=== PATIENT | female | born 1945 | race Caucasian/White ===

== ENCOUNTER → 2019-04-15 10:23 | Outpatient (BNVA) | payer MEDICARE, MEDICAID, SELFPAY | PROVIDERS: Family Provider Physician Assistant Medical; PCP Physician Assistant Medical; Referring Provider Physician Assistant Medical; Visit Provider Specialist | DX: M25.561 Pain in right knee (principal); G89.29 Other chronic pain | CPT/HCPCS: 73560; 73565; J1100; J2795; J3301 ==

== ENCOUNTER → 2020-12-28 08:50 | Outpatient (BNVA) | payer MEDICARE, MEDICAID, SELFPAY | PROVIDERS: Family Provider Nurse Practitioner Family; PCP Physician Assistant Medical; Visit Provider Specialist | DX: M25.562 Pain in left knee (principal); M25.561 Pain in right knee | CPT/HCPCS: 73560; 73565 ==

== ENCOUNTER 2021-05-17 13:11 | Outpatient (CLI) | payer MEDICARE, MEDICAID, SELFPAY ==
--- NOTE | 2021-05-17 13:20 | MM_ITS ---
WS: [id number] LEFT 3D TOMOSYNTHESIS DIGITAL MAMMOGRAPHY WITH CAD CLINICAL INFORMATION: BREAST PAIN HISTORY: Bilateral breast pain COMPARISON: TECHNIQUE: 6 views of the left breast were obtained. FINDINGS: Scattered fibroglandular densities of the left breast. No definite mammographic abnormalities deep to the palpable markers bilaterally. A few incidental punctate calcifications. Ultrasound is pending. V ascular calcification. Incidental intramammary lymph nodes upper outer LEFT breast. ULTRASOUND BREAST BILATERAL TECHNIQUE: Ultrasound bilateral breast focused area of concern. CLINICAL INFORMATION: BREAST PAIN COMPARISON: None. FINDINGS: Ultrasound bilateral breast in the area of concern. Ultrasound RIGHT breast 7:00 position 5 cm from the nipple. Ultrasound LEFT breast 11:00 position 7 cm from the nipple. Dense underlying par enchymal tissue. No cystic or solid lesions. No suspicious findings. No lesions to target for biopsy. Recommend return to annual screening mammography. MM/[place] [id number] IMPRESSION: BI-RADS: 2-Benign FOLLOW UP: 1 Year Follow-up Recommend return to annual screening mammography.
--- NOTE | 2021-05-17 14:31 | US_ITS ---
WS: [id number] LEFT 3D TOMOSYNTHESIS DIGITAL MAMMOGRAPHY WITH CAD CLINICAL INFORMATION: BREAST PAIN HISTORY: Bilateral breast pain COMPARISON: TECHNIQUE: 6 views of the left breast were obtained. FINDINGS: Scattered fibroglandular densities of the left breast. No definite mammographic abnormalities deep to the palpable markers bilaterally. A few incidental punctate calcifications. Ultrasound is pending. V ascular calcification. Incidental intramammary lymph nodes upper outer LEFT breast. ULTRASOUND BREAST BILATERAL TECHNIQUE: Ultrasound bilateral breast focused area of concern. CLINICAL INFORMATION: BREAST PAIN COMPARISON: None. FINDINGS: Ultrasound bilateral breast in the area of concern. Ultrasound RIGHT breast 7:00 position 5 cm from the nipple. Ultrasound LEFT breast 11:00 position 7 cm from the nipple. Dense underlying par enchymal tissue. No cystic or solid lesions. No suspicious findings. No lesions to target for biopsy. Recommend return to annual screening mammography. US/US breast BI limited* [id number] IMPRESSION: BI-RADS: 2-Benign FOLLOW UP: 1 Year Follow-up Recommend return to annual screening mammography.
== END 2021-05-17 13:12 | disposition home or self-care (01) ==
PROVIDERS: PCP Nurse Practitioner Family; Visit Provider Registered Nurse
DX: N64.4 Mastodynia (principal)
CPT/HCPCS: 76642; 77062

== ENCOUNTER → 2021-07-12 10:31 | Outpatient (BNVA) | payer MEDICARE, MEDICAID, SELFPAY | PROVIDERS: PCP Nurse Practitioner Family; Visit Provider Specialist | DX: M17.0 Bilateral primary osteoarthritis of knee (principal); Z71.89 Other specified counseling | CPT/HCPCS: 20610; J1100; J2795; J3301 ==

== ENCOUNTER → 2021-09-26 12:15 | Outpatient (BNVA) | payer MEDICARE, MEDICAID, SELFPAY | PROVIDERS: PCP Registered Nurse; Visit Provider Internal Medicine Cardiovascular Disease | DX: R06.02 Shortness of breath (principal); R07.9 Chest pain, unspecified; E78.5 Hyperlipidemia, unspecified; I10 Essential (primary) hypertension; Z87.891 Personal history of nicotine dependence | CPT/HCPCS: 99203; 99204 ==

== ENCOUNTER → 2022-06-10 08:59 | Outpatient (BNVA) | payer MEDICARE, MEDICAID, SELFPAY | PROVIDERS: PCP Registered Nurse; Referring Provider Registered Nurse; Visit Provider Specialist | DX: M17.11 Unilateral primary osteoarthritis, right knee (principal); M22.41 Chondromalacia patellae, right knee; S83.241A Other tear of medial meniscus, current injury, right knee, initial encounter; X58.XXXA Exposure to other specified factors, initial encounter | CPT/HCPCS: 73560; 73565; 99204 ==

== ENCOUNTER 2022-06-28 08:56 | Day surgery (SDC) | payer MEDICARE, MEDICAID, SELFPAY ==
[2022-06-27 08:51] VITALS: BMI 38.4
[2022-06-28] VITALS (8 sets, daily range): BP systolic 129–232; BP diastolic 63–89; PULSE 61–72; RESP 16–18; TEMP 36.8; O2SAT 94–99
[2022-06-28] MEDS: acetaminophen 1,000 MG/100 ML PIGGYBACK 400 MG IV (09:40)
[2022-06-28] MEDS: gabapentin 300 mg Capsule PO (09:40)
[2022-06-28] MEDS: sodium chloride 0.9% 1,000 ML 30 ML IV (09:40)
[2022-06-28] MEDS: CELEcoxib 200 mg Capsule 400 MG PO (09:41)
--- NOTE | 2022-06-28 10:19 | ANES.PREANE2 ---
Pre-Anesthetic Assessment Height/Weight: Height 1.57 m Weight 95.254 kg Temp Pulse Resp BP Pulse Ox O2 Del Method 98.3 F 61 16 232/84 96 Room Air 06/28/22 09:06 06/28/22 09:06 06/28/22 09:06 06/28/22 09:06 06/28/22 09:06 06/28/22 09:36 Operation Date: 06/28/22 11:00 Proposed Procedures p RIGHT KNEE ARTHROSCOPY WITH MEDIAL MENISECTOMY AND DEBRIDMENT 05780, S83.241A M22.40 M17.11(Right) - Bev South MD s Meniscectomy(Right) - Bev South MD s Debridement Lower Extremity(Right) - Bev South MD Familial anesthetic complications: none Was Beta Skyla taken within 24 hours: N/A Was Clonidine taken within 24 hours: N/A Last intake: Intake Last Liquid Date 06/27/22 Last Liquid Time 18:00 Last Solid Date 06/27/22 Last Solid Time 18:00 Social No alcohol and No tobacco Exam alert, oriented x 3, clear to auscultation bilaterally and regular rate & rhythm Airway Submandibular: within normal limits Cervical ROM: within normal limits Mallampati: Class II Dentition: false (upper) CV/HEM Hypertension GI Gastroesophageal Reflux Disease Metabolic Hyperlipidemia and Morbid Obesity [facility] [place] Osteoarthritis/DJD Anesthetic Plan ASA status: 3 Anesthesia: General Medications/Allergies Home Medications Medication Instructions Recorded Confirmed Last Taken Type hydrochlorothiazide 25 mg tablet 25 mg PO DAILY 09/26/21 06/27/22 06/26/22 History losartan 100 mg tablet 100 mg PO DAILY 09/26/21 06/27/22 06/26/22 History pantoprazole 40 mg tablet,delayed 40 mg PO DAILY 09/26/21 06/27/22 06/26/22 History release pravastatin 40 mg tablet 40 mg PO DAILY 09/26/21 06/27/22 06/26/22 History docusate sodium 100 mg tablet 100 mg PO DAILY 06/27/22 06/27/22 06/26/22 History (Stool Softener) Allergies Allergy/AdvReac Type Severity Reaction Status Date / Time No Known Allergies Allergy Verified 06/28/22 09:23 Current Medications Generic Name Dose Route Start Last Admin Trade Name Freq PRN Reason Stop Dose Admin Sodium Chloride 1,000 mls @ 30 mls/hr 06/28/22 09:15 06/28/22 09:40 Sodium Chloride 0.9% IV 06/29/22 09:14 30 mls/hr .Q24H POONAM Administration PFSH Anesthesia Medical History Chondromalacia patellae of right knee GERD (gastroesophageal reflux disease) History of nonmelanoma skin cancer Hyperlipidemia Hypertension Medial meniscus tear Surgical History S/P bilateral oophorectomy Family History Brother Myocardial infarction Hypertension Sister Myocardial infarction Cancer Diabetes Hypertension Mother Cancer Father Cancer Social History Smoking and tobacco status: former smoker Alcohol intake: never Substance/Drug Use: never Data Anesthesia Cardiac Studies: No Data to Display
[2022-06-28] MEDS: diphenhydrAMINE 50 mg/mL SDV 1mL 12.5 MG IVP (10:45)
[2022-06-28] MEDS: scopolamine 1.5 Patch 1 PATCH TRANSDERMA (10:46)
--- NOTE | 2022-06-28 12:02 | P.HPUD_ITS ---
Surgery/Procedure H&P Update DATE OF PROCEDURE: June 28, 2022 DATE H&P PERFORMED: 06/10/22 H&P UPDATE INFORMATION: I have reviewed H&P completed within last 30 days, I have examined patient prior to procedure, No changes to prior documentation and H&P is in [facility] EMR on date indicated PLANNED PROCEDURE: Operation Date: 06/28/22 11:00 Proposed Procedures p RIGHT KNEE ARTHROSCOPY WITH MEDIAL MENISECTOMY AND DEBRIDMENT 47874, S83.241A M22.40 M17.11(Right) - Bev South MD s Meniscectomy(Right) - Bev South MD s Debridement Lower Extremity(Right) - Bev South MD Related Problem List Diagnoses (1) Medial meniscus tear: Qualifiers: Tear current or old: current Encounter type: initial encounter Meniscus tear of knee type: unspecified type Laterality: right Qualified Code(s): S83.241A - Other tear of medial meniscus, current injury, right knee, initial encounter (2) Chondromalacia patellae of right knee: (3) Primary osteoarthritis of right knee:
[2022-06-28] MEDS: ceFAZolin 2,000 MG in sodium chloride 0.9% (plus) 50 ML 100 MG IV (12:21)
[2022-06-28] MEDS: morphine 4 mg/mL SDV 1 mL 8 MG XX (12:57)
--- NOTE | 2022-06-28 14:32 | ANE.PACU2 ---
Inpatient post-anesthesia follow up: Airway intact: Yes Vital signs: Temperature 98.3 F Pulse Rate 64 Respiratory Rate 18 Blood Pressure 157/89 Pulse Oximetry 96 Oxygen Delivery Me thod Room Air Oxygen Flow Rate 6 Fraction of Inspir ed Oxygen Hydration adequate: Yes Nausea and vomiting: No Pain level: 3 Mental status: Baseline
--- NOTE | 2022-06-28 14:45 | P.OP_ITS ---
Operative Report Date of procedure: June 28, 2022 Pre-op diagnosis: Right knee medial meniscal tear with underlying osteoarthritis right knee Post-op diagnosis: Right knee medial and lateral meniscal tears with underlying osteoarthritis right knee Procedure done: Right arthroscopic knee surgery with partial medial and lateral meniscectomies and chondroplasty patella and medial femoral condyle Specimens removed/disposition: None Surgeon: Bev South [employer] Counterperson: None Anesthesia: General (Per LMA, ASA 3) Estimated blood loss (mL): 3 Tourniquet time (min): 49 (At 300 mmHg) IV fluids (mL): 700 Urine output (mL): 0 (No Cespedes) Complications: None Findings: Posterior medial meniscal tear involving the posterior half with a large displaced fragment into the notch. Significant degenerative osteoarthritis within the knee as well. Condition: stable Disposition: PACU (Then to same-day surgery for discharge to home) Brief History: This is a 76 year old year old female patient who presents today for right knee arthroscopy following an acute injury to her right knee. Subsequent MRI demonstrated a medial meniscal tear along with a degenerative osteoarthritic changes. Patient states the pain is to the lateral knee and anterior knee.? Patient states that the pain is burning and radiates to the lower leg. Patient states the knee pops at times. Patient states that the knee has instability as well. After evaluation and discussion while in the office, the patient noted that she wished to proceed with knee arthroscopy understanding that it may aggravate her pre-existing osteoarthritic change. She had a definite change in symptoms following her acute injury, and therefore, we elected to proceed with arthroscopic knee surgery. Risk and complications were discussed with her. Consents were signed preoperatively in the office. Questions were answered. Procedure: Patient was brought to the operating theater and after undergoing adequate general anesthesia per LMA, ASA 3, the patient's right lower extremity was prepped and draped in usual fashion utilizing DuraPrep. A tourniquet was placed high on the leg prior to prepping and draping. The tourniquet was elevated prior to commencement of the surgical procedure to 300 mmHg. Total tourniquet time was 49 minutes. Elevation followed prepping and exsanguination. Prior to commencement of the surgical procedure, a surgical pause was performed. At the time of the surgical pause, we identified the site and side of surgery. We also confirm the patient's identity and appropriate and timely administration of preoperative antibiotics. Preoperative surgical markings were also visualized at this time. Standard arthroscopic portals were utilized including superolateral, inferomedial, and inferolateral portals. The examination commenced in the suprapatellar pouch area where the patient was noted to have chondromalacia of the significant degree on the undersurface of the patella. The arthroscope was then passed in the medial compartment where there was noted to be a tear involving the posterior horn and extending to approximately the midportion of the medial meniscus. This was debrided with a combination of the intra- articular shaver and intra-articular heat wand. Further evaluation demonstrated there was a rolled up displaced fragment in the posterior notch. This was also addressed with a combination of basket forceps, the intra-articular shaver, and the heat wand. The meniscus was then palpated and found to be not displaceable into the joint. The arthroscope was then passed across the notch area where anterior cruciate ligament was visualized and found to be intact, but there was significant synovitis which was debrided. The scope was passed into the lateral compartment with the knee in a [id number]-[id number]-[id number] position. [id number]-bx-[id number] position was difficult as the patient had significant osteoarthritic change which precluded her from entering this position easily. The lateral meniscus was noted to have inner rim tearing involving the entire inner rim. This was debrided with a combination of the intra-articular shaver and heat wand. Once lateral meniscus had been thus prepared it was palpated and found to be intact and not displaceable into the knee joint. Scope was then returned to the medial compartment where a chondroplasty was performed of the medial femoral condyle. The meniscus was palpated and found to be not displaceable into the knee joint. The arthroscope was then returned to the patellofemoral joint where a chondroplasty was performed of the undersurface of the patella. This chondroplasty involved use of the intra-articular shaver as well as the heat wand. Once the patella had been addressed, the scope was passed back through the knee compartments to evaluate for other abnormalities. Finding none, attention was directed to closure. The knee was copiously irrigated and suctioned dry. Following this, each portal was closed with a simple suture followed by Dermabond and OpSite. Additionally, the knee was injected with 20 mL of half percent ropivacaine and 8 mg of morphine. Additional 10 mL of ropivacaine was placed about the portals. Sterile dressing was placed consisting of the OpSite followed by the Yony wrap. Patient was returned to Recovery Room in satisfactory condition where she will be discharged home to follow-up with me in the office as scheduled. There were no complications and no specimens. Related Problem List Diagnoses (1) Medial meniscus tear: (2) Chondromalacia patellae of right knee: (3) Primary osteoarthritis of right knee:
[2022-06-28] MEDS: HYDROcodone-acetaminophen 5-325 mg Tablet 1 TAB PO (14:55)
== END 2022-06-28 15:28 | disposition home or self-care (01) ==
PROVIDERS: PCP Registered Nurse; Visit Provider Specialist
PROC: (CPT 29870; principal; 2022-06-28 10:40)
PROC: (CPT 29880; 2022-06-28 10:40)
PROC: (CPT 29880; 2022-06-28 10:40)
DX: S83.241A Other tear of medial meniscus, current injury, right knee, initial encounter (principal); M17.11 Unilateral primary osteoarthritis, right knee; M22.41 Chondromalacia patellae, right knee; X58.XXXA Exposure to other specified factors, initial encounter; I10 Essential (primary) hypertension; K21.9 Gastro-esophageal reflux disease without esophagitis; E78.5 Hyperlipidemia, unspecified; E66.01 Morbid (severe) obesity due to excess calories; Z68.38 Body mass index [BMI] 38.0-38.9, adult; Z87.891 Personal history of nicotine dependence
CPT/HCPCS: 29880; J0131; J0690; J1100; J1170; J1200; J2270; J2405; J2704; J2795; J3010; J3490; J7030

== ENCOUNTER → 2022-07-11 13:08 | Outpatient (BNVA) | payer MEDICARE, MEDICAID, SELFPAY | PROVIDERS: PCP Registered Nurse; Visit Provider Nurse Practitioner Family | DX: Z48.89 Encounter for other specified surgical aftercare (principal) | CPT/HCPCS: 99024 ==

== ENCOUNTER → 2022-08-07 13:17 | Outpatient (BNVA) | payer MEDICARE, MEDICAID, SELFPAY | PROVIDERS: PCP Registered Nurse; Visit Provider Specialist | DX: M17.11 Unilateral primary osteoarthritis, right knee (principal) | CPT/HCPCS: 20610; 99213; J1100; J2795; J3301 ==

== ENCOUNTER → 2022-09-11 13:11 | Outpatient (BNVA) | payer MEDICARE, MEDICAID, SELFPAY | PROVIDERS: PCP Registered Nurse; Visit Provider Specialist | DX: M17.0 Bilateral primary osteoarthritis of knee | CPT/HCPCS: 20610; 73560; 73565; 99214; J7326 ==

== ENCOUNTER 2022-09-26 12:05 | Outpatient (CLI) | payer MEDICARE, MEDICAID, SELFPAY ==
--- NOTE | 2022-09-26 13:00 | CT_ITS ---
WS: [id number] CT RIGHT KNEE, NONCONTRAST TECHNIQUE: Noncontrast CT of the RIGHT knee to include the RIGHT hip and ankle. [facility] CLINICAL INFORMATION: KNEE PAIN COMPARISON: None. DLP: 979.[address] scans at [facility] use at least one of these dose optimization techniques: automated e xposure control; mA and/or kV adjustment per patient size (includes targeted exams where dose is matc hed to clinical indication); or iterative reconstruction. FINDINGS: Moderate suprapatellar effusion. Mild to moderate joint arthritis right knee worse medial joint comp artment. Visualized femur and femoral condyles are normal. Normal patella. Mild to moderate degenerat jonny narrowing patellofemoral articulation. Degenerative arthritis sacroiliac joints. Sigmoid divertic ulosis. No other suspicious findings. IMPRESSION: Images obtained for preoperative purposes.
== END 2022-09-26 12:06 | disposition home or self-care (01) ==
PROVIDERS: PCP Registered Nurse; Visit Provider Specialist
DX: M25.561 Pain in right knee (principal)
CPT/HCPCS: 73700

== ENCOUNTER 2022-10-29 11:19 | Outpatient (CLI) | payer MEDICARE, MEDICAID, SELFPAY ==
[2022-10-29 12:23] LABS: Add Urine Microscopic? NO; Charge for UA Resulting for Rev
[2022-10-29 12:44] LABS: Bilirubin Urine Neg (Negative); Blood Urine Neg (Negative); Glucose Urine UA Norm (Normal); Ketones Urine Negative (Negative); Leukocyte Esterase Urine Negative (Negative); Nitrate Urine Negative (Negative); Protein Urine Neg (Negative); Specific Gravity, Urine 1.005 (1.005-1.030); Urine Appearance Clear (CLEAR); Urine Color Yellow (Yellow); Urobilinogen Urine Norm (Negative); pH Urine 7 (5-7)
[2022-10-29 12:47] LABS: Basophils # 0.1 10^3/uL (0.0-0.1); Basophils % 0.7 %; Eosinophils % 0.3 %; Hematocrit 33.3 % (36-47); Lymphocytes # 1.9 10^3/uL (0.8-4.8); Mean Corpuscular HGB Conc 31.8 g/dL (30-55); Mean Corpuscular Hemoglobin 28.9 pg (27-33); Mean Corpuscular Volume 90.7 fl (85-98); Mean Platelet Volume 12.1 fL (7.4-10.4); Monocytes # 0.8 10^3/uL (0.2-0.9); Monocytes % 11.7 %; Neutrophils # 3.84 10^3/uL (1.8-7.7); Neutrophils % 57.7 %; Nucleated Red Blood Cells % 0 %; Platelet Count 162 10^3/cmm (157-399); Red Blood Count 3.67 10^6/uL (3.85-5.65); Red Cell Distribution Width 15.3 % (12.1-15.1); White Blood Count 6.67 10^3/uL (3.29-11.43)
[2022-10-29 12:48] LABS: Estmated Average Glucose 108; Hemoglobin A1C 5.4 % (4.0-6.0)
[2022-10-29 12:49] LABS: Alanine Aminotransferase 10 U/L (0-33); Albumin Level 4.6 g/dL (3.5-5.2); Alkaline Phosphatase 74 U/L (35-105); Anion Gap 10.9 (5-19); Aspartate Amino Transferase 14 U/L (0-32); Blood Urea Nitrogen 16 mg/dL (8-23); Calcium 10.1 mg/dL (8.5-10.5); Carbon Dioxide 30 mmol/L (22-29); Chloride 102 mmol/L (98-107); Globulin 2.6 g/dL (1.3-4.6); Glucose 110 mg/dL (65-115); Osmolality Calculated 290 mOsm/kg (285-295); Potassium 3.9 mmol/L (3.5-5.1); Sodium 139 mmol/L (136-145); Total Bilirubin 0.5 mg/dL (0.15-1.2); Total Protein 7.2 g/dL (6.6-8.7)
== END 2022-10-29 11:20 | disposition home or self-care (01) ==
PROVIDERS: PCP Registered Nurse; Visit Provider Specialist
DX: M17.0 Bilateral primary osteoarthritis of knee (principal); S83.241A Other tear of medial meniscus, current injury, right knee, initial encounter; X58.XXXA Exposure to other specified factors, initial encounter
CPT/HCPCS: 36415; 80053; 81003; 83036; 85025

== ENCOUNTER 2022-11-05 10:15 | Observation (INO) | payer MEDICARE, MEDICAID, SELFPAY ==
[2022-11-05] VITALS (10 sets, daily range): BP systolic 109–177; BP diastolic 54–85; PULSE 48–79; RESP 16–18; TEMP 36.2–36.4; O2SAT 90–98; BMI 38.7
[2022-11-05] MEDS: sodium chloride 0.9% 1,000 ML 30 ML IV (06:06)
[2022-11-05] MEDS: acetaminophen 1,000 MG/100 ML PIGGYBACK 400 MG IV ×3 (06:08→22:13)
[2022-11-05] MEDS: gabapentin 300 mg Capsule PO (06:09)
[2022-11-05] MEDS: CELEcoxib 200 mg Capsule 400 MG PO (06:09)
--- NOTE | 2022-11-05 06:48 | ANES.PREANE2 ---
Pre-Anesthetic Assessment Height/Weight: Height 1.57 m Weight 96.162 kg Temp Pulse Resp BP Pulse Ox O2 Del Method 97.1 F L 66 18 177/85 98 Room Air 11/05/22 05:50 11/05/22 05:50 11/05/22 05:50 11/05/22 05:50 11/05/22 05:50 11/05/22 05:50 Operation Date: 11/05/22 07:00 Proposed Procedures p RIGHT TOTAL KNEE ARHTORPLASTY WITH JASE GUIDANCE 78811, M17.10(Right) - Bev South MD Familial anesthetic complications: None Was Beta Skyla taken within 24 hours: N/A Was Clonidine taken within 24 hours: N/A Last intake: Intake Last Liquid Date 11/04/22 Last Liquid Time 18:00 Last Solid Date 11/04/22 Last Solid Time 18:00 Social No alcohol and No tobacco Exam alert, oriented x 3, clear to auscultation bilaterally and regular rate & rhythm Airway Mallampati: Class III Dentition: false CV/HEM Hypertension GI Gastroesophageal Reflux Disease Metabolic Hyperlipidemia and Morbid Obesity Anesthetic Plan ASA status: 3 Anesthesia: Regional (specify below) Risk of > 500 ml blood loss (7ml/kg in children): No Medications/Allergies Home Medications Medication Instructions Recorded Confirmed Last Taken Type hydrochlorothiazide 25 mg tablet 25 mg PO DAILY 09/26/21 11/05/22 11/04/22 History losartan 100 mg tablet 100 mg PO DAILY 09/26/21 11/05/22 11/04/22 History pantoprazole 40 mg tablet,delayed 40 mg PO DAILY 09/26/21 11/05/22 11/04/22 History release pravastatin 40 mg tablet 40 mg PO DAILY 09/26/21 11/05/22 11/04/22 History docusate sodium 100 mg tablet 100 mg PO DAILY 06/27/22 11/05/22 11/04/22 History (Stool Softener) trazodone 150 mg tablet 150 mg PO BEDTIME 11/04/22 11/05/22 11/04/22 History Allergies Allergy/AdvReac Type Severity Reaction Status Date / Time No Known Allergies Allergy Verified 11/04/22 12:49 Current Medications Generic Name Dose Route Start Last Admin Trade Name Freq PRN Reason Stop Dose Admin Sodium Chloride 1,000 mls @ 30 mls/hr 11/05/22 05:45 11/05/22 06:06 Sodium Chloride 0.9% IV 11/06/22 05:44 30 mls/hr .Q24H POONAM Administration PFSH Anesthesia Medical History Chondromalacia patellae of right knee GERD (gastroesophageal reflux disease) History of nonmelanoma skin cancer Hyperlipidemia Hypertension Medial meniscus tear Surgical History S/P bilateral oophorectomy Family History Brother Myocardial infarction Hypertension Sister Myocardial infarction Cancer Diabetes Hypertension Mother Cancer Father Cancer Social History Smoking and tobacco status: former smoker Alcohol intake: never Substance/Drug Use: never Data Anesthesia Cardiac Studies: No Data to Display
--- NOTE | 2022-11-05 06:49 | ANES.PROC ---
Anesthesia Procedures Procedure/Date: 11/05/22 Nerve Block ^: Nerve Block 1: Main Anesthesia: spinal anesthesia block Time Out Performed: Yes Consent: requested by attending/covering physician, from patient, from other, risks and benefits reviewed and patient agrees to proceed Nerve block location: adductor canal (R) Anesthesia monitors applied: pulse oximetry, EKG, BP cuff and oxygen Nerve block position: supine Anesthetic Used: ropivicaine 0.5% (30 ml) and with decadron (4 mg) Ultrasound used to: recognize landmarks and visualize and ID femerol nerve Nerve Stimulator Used?: No Interscalene/Femoral BLK: 4 stimuplex 21 g needle used for position and inplane approach, visualize local anesthetic spread and no vascular puncture identified Injection: neg aspiration of heme Patient Tolerated Procedure: well and no complications Complications: none
--- NOTE | 2022-11-05 07:00 | W.PM.OPSUD ---
Surgery/Procedure H&P Update DATE OF PROCEDURE: November 05, 2022 DATE H&P PERFORMED: 11/04/22 H&P UPDATE INFORMATION: I have reviewed H&P completed within last 30 days, I have examined patient prior to procedure, No changes to prior documentation and H&P is in [facility] EMR on date indicated PLANNED PROCEDURE: Operation Date: 11/05/22 07:00 Proposed Procedures p RIGHT TOTAL KNEE ARHTORPLASTY WITH JASE GUIDANCE 10193, M17.10(Right) - Bev South MD Related Problem List Diagnoses (1) Primary osteoarthritis of right knee:
[2022-11-05] MEDS: ceFAZolin 2,000 MG in sodium chloride 0.9% (plus) 50 ML 100 MG IV ×3 (07:05→22:48)
[2022-11-05] MEDS: BUPivacaine liposome 13.3 mg/mL SDV 10 mL 266 MG INFILTRATI (08:08)
[2022-11-05] MEDS: BUPivacaine 0.5% INJ 30 mL INJECTION (08:08)
[2022-11-05] MEDS: ceFAZolin 1,000 mg SDV 1000 MG IRRIGATION ×2 (08:12→08:13)
[2022-11-05] MEDS: vancomycin 1,000 MG SDV 1000 MG XX (09:24)
--- NOTE | 2022-11-05 10:15 | PM.OP ---
Operative Report Date of procedure: November 05, 2022 Pre-op diagnosis: Primary osteoarthritis right knee Post-op diagnosis: Primary osteoarthritis right knee Post-op findings: Severe degenerative osteoarthritis of the right knee with varus deformity with complete obliteration of joint space Procedure done: Right total knee arthroplasty with Lex guidance Implants: The Ann total knee system with a size 2 triathlon beaded cruciate retaining femur right, a triathlon titanium tibial component size?3 beaded, a triathlon X3 tibial bearing CS insert size 3 X 9 mm and a beaded triathlon titanium asymmetric patella size 32 x 10 mm Specimens removed/disposition: Bone, disposed of Pathology: None Surgeon: Bev South MD Cvor Nurse: [facility] operating room technicians Anesthesia: Spinal (With MAC and adductor block) Estimated blood loss (mL): 400 Tourniquet time (min): 0 (Not utilized) IV fluids (mL): 1,000 Urine output (mL): 400 Complications: None Findings: Severe degenerative osteoarthritis of the right knee with varus deformity and large osteophytes with complete obliteration of joint space Condition: stable Disposition: PACU (Then to floor for postoperative rehabilitation and pain management under observation status) Brief History: Gail Main is an established 77 year old female patient who is here today for same-day right total knee arthroplasty. DOS patient rates pain at 5/10. Patient states that her right knee continues to have pain to the medial and lateral aspect of the knee. Patient states the right knee is unstable and gives out on her. Patient states that the pain causes her pain while walking and she cannot walk far with out pain and having to stop. Patient is not able to take anti-inflammatories due to stomach issues. Patient has had cortisone injection for the past year with out improvement.? As conservative measures failed, the patient wishes to proceed with total knee arthroplasty. Risks and complications were discussed with her preoperatively in the office, and consents were signed. Consents were renewed the day of surgery again discussion of risks and complications occurred. Procedure: The patient was brought to the operating theater, and after undergoing spinal anesthesia with MAC and supplemental adductor block, ASA 3, the right lower extremity was prepped with Dura-Prep and draped in usual fashion following placement of a tourniquet high on the leg. The leg was then draped free.? Tourniquet was not elevated during the case.? A surgical pause was performed, and at the time of the surgical pause, we confirmed the site and side of surgery. Additionally, we confirmed the appropriate and timely administration of preoperative antibiotics, Ancef 2 g and Transexemic acid 1 g.? The availability of equipment was confirmed, and the patient's identity was verbalized as well.? An additional transexemic acid 1 g will be given on the floor as well. Following the surgical pause, an incision was made centering over the patella continuing proximally and distally as necessary to allow access to the knee joint. Dissection continued through skin and soft tissues using a scalpel. Hemostasis was obtained using electrocautery. The skin incision was followed by a median parapatellar arthrotomy. The leg was extended and the patella was able to be displaced laterally without difficulty.? Medial release was initially accomplished to allow placement for the Lex array.? Appropriate arrays and markers were placed in appropriate position for use of the Lex.? Preoperative planning had been accomplished and was discussed in detail with the Lex construction sales representative.? Intraoperative mapping of the femur and tibia was accomplished after the arrays were placed.? Internal markers were also placed.? Once we had accomplished the Lex mapping, we began the appropriate resections for placement of the prosthesis.? The plan was for a cruciate retaining right total knee arthroplasty.? Medial releases were accomplished prior to the surgical procedure to allow balancing of the knee. Once appropriate mapping had been accomplished retraction was established using manual retraction by surgical technicians and also the Elx leg positioner and retractors.? The knee was evaluated.? There was significant osteoarthritic change with significant varus.? The tibia was cut first with the Lex.? Subsequently, appropriate bone resection of the femur was accomplished using the Lex.? The femur was sized to a size 2.? Osteophytes were removed prior to this portion of the procedure.? We had performed a medial release at the beginning of the procedure to allow for placement of the array and to allow for better planning with flexion and extension adjustments per Lex programming.? Following this resection, it was felt that appropriate size for the tibia was a size 3.? Tray was noted to fit nicely with good coverage.? Rim fit was accomplished with the size 3. A trial reduction was accomplished after osteophytes have been removed as well as the medial and lateral menisci.? We had removed the anterior cruciate ligament at the beginning of the case and preserved the posterior cruciate ligament.? Trial reduction was accomplished with a size 2 femoral posterior cruciate retaining component and a size 3 tibial tray with a size 3 x 9 CS tibial bearing insert.? Alignment was felt to be appropriate.? Trial components were removed after the femur had been drilled.? Prior to removal of the tibial tray which had been pinned in position with appropriate rotation as determined by the Lex plan, we broached the tibia.? Subsequently, the 4 drill holes were made for the prosthetic component.? All trial components were removed, and the wound was irrigated.? Plans were made for insertion of the prosthetic components.? Prior to this, the patella was manually prepared.? After resection of the articular surface with the patellar whitney, it was measured and measured a 32 mm patella.? We resected approximately 8 mm of patella.? Patellar height was restored with the patellar component. Once again, the wound was irrigated.? The Tritanium tibia was impacted into position.? The beaded femur was then impacted into position in a cementless fashion. The CS tibial insert was placed prior to placement of the femoral component. The patella was pressed into position with a patellar clamp.? Exparel was injected about the components deep and superficially.? The knee was then copiously irrigated with betadine and saline and suctioned dry.? Further irrigation was accomplished with saline following the Betadine.? Attention was then directed to closure. Closure was accomplished with 0 Vicryl and strata fix starting proximally and overlap with a strata fix starting distally in the fascial tissues.? This was followed by Surgiflo and vancomycin powder.? Following this, a 2-0 Monocryl was used in the subcutaneous tissues, and the skin was closed with skin cristino.? Care was taken to assure an excellent subcutaneous as well as skin closure.? A sterile dressing was then placed consisting of Dermabond Prineo, OpSite, sterile soft roll including over the foot, and an Yony wrap. The patient was returned the Recovery Room in a satisfactory condition. X-rays were obtained and reviewed there.? The patient will be discharged to the floor for postoperative rehabilitation and pain management. Related Problem List Diagnoses (1) Primary osteoarthritis of right knee:
--- NOTE | 2022-11-05 10:16 | XR_ITS ---
WS: [id number] XR knee RT 1-2V 83542 REASON FOR EXAM: Status post right total knee arthroplasty FINDINGS: Total right knee arthroplasty. The components of the arthroplasty are intact and in proper position and alignment. No focal bony abnormality. IMPRESSION: Total right knee arthroplasty without abnormality.
--- NOTE | 2022-11-05 10:40 | ANE.PACU2 ---
Inpatient post-anesthesia follow up: Airway intact: Yes Vital signs: Temperature 97.5 F Pulse Rate 48 Respiratory Rate 16 Blood Pressure 125/71 Pulse Oximetry 93 Oxygen Delivery Me thod Room Air Oxygen Flow Rate Fraction of Inspir ed Oxygen Hydration adequate: Yes Nausea and vomiting: No Pain level: 1 Mental status: Baseline
[2022-11-05] MEDS: oxyCODONE 5 mg IR Tab/Cap PO ×2 (13:38→20:41)
[2022-11-05] MEDS: chlorhexidine gluconate 0.12% Btl 473 mL 30 ML MUCOUS MEM ×3 (13:39→20:46)
[2022-11-05] MEDS: calcium carbonate 500 mg Chew Tablet 1000 MG PO (17:25)
[2022-11-05] MEDS: docusate sodium 100 mg Capsule PO (17:25)
[2022-11-05] MEDS: CELEcoxib 200 mg Capsule PO (17:26)
[2022-11-05] MEDS: iron polysaccharide complex 150 mg Capsule PO (17:26)
[2022-11-05] MEDS: mupirocin oint 22 gm 1 APPLIC NASAL (17:28)
[2022-11-05] MEDS: trazodone 150 mg Tablet PO (20:41)
[2022-11-06] VITALS (7 sets, daily range): BP systolic 109–121; BP diastolic 46–75; PULSE 54–94; RESP 14–18; TEMP 36.4–36.8; O2SAT 92–99
[2022-11-06 04:53] LABS: Basophils % 0.1 %; Hematocrit 25.4 % (36-47); Lymphocytes # 1.3 10^3/uL (0.8-4.8); Lymphocytes % 9.6 %; Mean Corpuscular HGB Conc 32.3 g/dL (30-55); Mean Corpuscular Hemoglobin 29.8 pg (27-33); Mean Corpuscular Volume 92.4 fl (85-98); Mean Platelet Volume 12.1 fL (7.4-10.4); Monocytes # 2.6 10^3/uL (0.2-0.9); Monocytes % 19.9 %; Neutrophils # 9.12 10^3/uL (1.8-7.7); Neutrophils % 69.7 %; Nucleated Red Blood Cells % 0 %; Platelet Count 132 10^3/cmm (157-399); Red Blood Count 2.75 10^6/uL (3.85-5.65); Red Cell Distribution Width 15.9 % (12.1-15.1); White Blood Count 13.07 10^3/uL (3.29-11.43)
[2022-11-06 05:22] LABS: Anion Gap 12.2 (5-19); Blood Urea Nitrogen 24 mg/dL (8-23); Calcium 9.3 mg/dL (8.5-10.5); Carbon Dioxide 25 mmol/L (22-29); Chloride 103 mmol/L (98-107); Glucose 112 mg/dL (65-115); Osmolality Calculated 287 mOsm/kg (285-295); Potassium 4.2 mmol/L (3.5-5.1); Sodium 136 mmol/L (136-145)
[2022-11-06] MEDS: CELEcoxib 200 mg Capsule PO (05:44)
[2022-11-06] MEDS: acetaminophen 1,000 MG/100 ML PIGGYBACK 400 MG IV (05:44)
--- NOTE | 2022-11-06 05:56 | PC.NURSE ---
Cespedes catheter removed at 0550. 400mls urine removed from catheter bag prior to removal. Pt voided shortly after catheter removal.
[2022-11-06] MEDS: oxyCODONE 5 mg IR Tab/Cap PO (06:49)
[2022-11-06] MEDS: ceFAZolin 2,000 MG in sodium chloride 0.9% (plus) 50 ML 100 MG IV (06:50)
[2022-11-06] MEDS: atorvastatin 40 mg Tablet 20 MG PO (08:31)
[2022-11-06] MEDS: aspirin 325 mg EC Tablet PO (08:31)
[2022-11-06] MEDS: hydroCHLOROthiazide 25 mg Tablet PO (08:31)
[2022-11-06] MEDS: losartan 50 mg Tablet 100 MG PO (08:31)
[2022-11-06] MEDS: multivitamin therapeutic Tablet 1 TAB PO (08:31)
[2022-11-06] MEDS: pantoprazole DR 40 mg Tablet PO (08:31)
[2022-11-06] MEDS: docusate sodium 100 mg Capsule PO (08:31)
[2022-11-06] MEDS: calcium carbonate 500 mg Chew Tablet 1000 MG PO (08:31)
[2022-11-06] MEDS: cholecalciferol (vitamin D3) 1,000 unit Tablet 1000 UNIT PO (08:32)
[2022-11-06] MEDS: chlorhexidine gluconate 0.12% Btl 473 mL 30 ML MUCOUS MEM (08:36)
[2022-11-06] MEDS: iron polysaccharide complex 150 mg Capsule PO (08:36)
[2022-11-06] MEDS: mupirocin oint 22 gm 1 APPLIC NASAL (08:36)
--- NOTE | 2022-11-06 10:43 | PC.CHAP ---
Pastoral Care Encounter/Spiritual Assessment Type of Contact [] Declined stringing machine tender visit [] Patient/Family/Request visit [] Outpatient visit [] Follow-up visit [] Physician referral [] Code/Alert [x] Routine visit [] Staff referral [] Actively dying [] Patient sleeping [x] Family support [] [] Out of room [] Palliative care [] [] Receiving care in room [] Pre-surgical visit [] Trauma [] Long length of stay [] ICU visit [] Other: Relational/Emotional Strength [x] Patient feels connected with others/family/visitors/staff [] Distress [] Loneliness/isolation [] Abandonment Spirituality of Patient [x] Person of Arlene [x] Attends Voodoo of their Arlene [x] Believes in Prayer [x] Reads Bible or Scientology materials [] There are Spiritual issues to be addressed Senior Bookkeeper Interventions [x] Prayer [x] Active listening [] Non-anxious presence [] Spiritual/emotional support [] Crisis/trauma care [] Spiritual counseling [] Bereavement support [] Provided bereavement packet [] Provided Bible/devotional materials [] Provided toy/stuffed animal, coloring book to patient or family member [] Provided Communion [] Anointing/[place] [] Salvation [] Completed spiritual assessment [] Other: Impact on Illness or Injury [] Angry [] Fearful [] Anxious [] Often cries [] Exhaustion [] Unable to work [] Unable to attend presybeterian [] Unable to walk/stand [] Unable to read [] Unable to drive [] Unable to eat/drink [] Unable to sleep [] Unable to be with family [] Patient intubated [] Other: Summary Time spent with patient 10 min
--- NOTE | 2022-11-06 12:23 | P.DS_ITS ---
Discharge Providers Date of Admission: 11/05/22 10:15 Date of Discharge: November 06, 2022 Attending Provider at Admission: Bev South MD Attending Provider at Discharge: Bev South MD Primary Care Provider: Kim Rose Diagnoses at Discharge Discharge Diagnosis (1) Primary osteoarthritis of right knee: Status: Acute Permanent problem details: Date of procedure: November 05, 2022 Diagnosis: Primary osteoarthritis right knee Post-op findings: Severe degenerative osteoarthritis of the right knee with varus deformity with complete obliteration of joint space Procedure done: Right total knee arthroplasty with Lex guidance Implants: [employer] total knee system with a size 2 triathlon beaded cruciate retaining femur right, a triathlon titanium tibial component size 3 beaded, a triathlon X3 tibial bearing CS insert size 3 X 9 mm and a beaded triathlon titanium asymmetric patella size 32 x 10 mm Reason for Visit Reason for Visit: M17.10 Brief History: Gail Main is an established 77 year old female patient who is here today for same-day right total knee arthroplasty.? DOS patient rates pain at 5/10. Patient states that her right knee continues to have pain to the medial and lateral aspect of the knee. Patient states the right knee is unstable and gives out on her. Patient states that the pain causes her pain while walking and she cannot walk far with out pain and having to stop. Patient is not able to take anti-inflammatories due to stomach issues. Patient has had cortisone injection for the past year with out improvement.? As conservative measures failed, the patient wishes to proceed with total knee arthroplasty.? Risks and complications were discussed with her preoperatively in the office, and consents were signed.? Consents were renewed the day of surgery again discussion of risks and complications occurred. Hospital Course Hospital Course This 77-year-old woman was admitted for same-day surgery in the form of a right total knee arthroplasty with Lex guidance. The patient was admitted under observation status for postoperative rehabilitation and pain management. She did very well. On the first postoperative day, the patient was independently ambulating with the assistance of physical therapy as a standby. She was felt to be safe to be discharged home. Risks and complications were discussed with her of her discharge. She was in agreement, and discharge home with home health was accomplished. There were no complications and no evidence of DVT. Physical Exam Const: COMMON NORMALS: no acute distress, average body habitus, patient oriented x3 and alert GENERAL APPEARANCE: cooperative and comfortable ORIENTATION/CONSCIOUSNESS: Yes awake HENMT: COMMON NORMALS: normocephalic and atraumatic HEAD & SCALP: normocephalic and atraumatic Eye: GENERAL EYE: appearance normal, both eyes and all related structures Chest: COMMONS NORMALS: normal inspection of the chest Resp: COMMON NORMALS: normal respiratory effort EFFORT & INSPECTION: Yes able to speak in complete sentences and Yes symmetric chest movement Extremity: RIGHT LOWER EXTREMITY: Yes knee joint (Dressings are dry and intact.) Right knee: Yes inspection (No significant ecchymosis.), Yes palpation (Minimal tenderness.), Yes ROM (Not evaluated.) and Yes neurovascular exam (No evidence of DVT.) Neuro: COMMON NORMALS: patient oriented x3 SENSORIUM/ORIENTATION: Yes alert Psych: COMMON NORMALS: mental status grossly normal APPEARANCE: Yes grossly normal ATTITUDE: Yes calm and Yes engaged ATTENTION/CONCENTRATION: Yes attention grossly intact Skin: COMMON NORMALS: no rashes or lesions noted GENERAL SKIN EXAM: no rashes or lesions noted Urinary Catheter Management: Cespedes: Cath Placed During This Visit: yes, but has since been removed by the nurse Urinary Catheter Date of Insertion: 11/05/22 Urinary Catheter Time of Insertion: 07:20 Date Urinary Catheter Removed: 11/06/22 Time Urinary Catheter Discontinued: 05:50 Discharge Data Studies Completed and Pending Completed Studies During Hospitalization Category Date Time Status XR knee RT 1-2V 70677 Urgent Exams 11/05/22 10:16 Completed Laboratory Results WBC 13.07 10^3/uL (3.29-11.43) H 11/06/22 04:21 RBC 2.75 10^6/uL (3.85-5.65) L 11/06/22 04:21 Hgb 8.20 g/dL (11.27-16.99) L 11/06/22 04:21 Hct 25.4 % (36-47) L 11/06/22 04:21 MCV 92.4 fl (85-98) 11/06/22 04:21 MCH 29.8 pg (27-33) 11/06/22 04:21 MCHC 32.3 g/dL (30-55) 11/06/22 04:21 RDW 15.9 % (12.1-15.1) H 11/06/22 04:21 Plt Count 132 10^3/cmm (157-399) L 11/06/22 04:21 MPV 12.1 fL (7.4-10.4) H 11/06/22 04:21 Neut % (Auto) 69.7 % 11/06/22 04:21 Lymph % (Auto) 9.6 % 11/06/22 04:21 [place] % (Auto) 19.9 % 11/06/22 04:21 Eos % (Auto) 0.0 % 11/06/22 04:21 Baso % (Auto) 0.1 % 11/06/22 04:21 Neut # (Auto) 9.12 10^3/uL (1.8-7.7) H 11/06/22 04:21 Lymph # (Auto) 1.3 10^3/uL (0.8-4.8) 11/06/22 04:21 [place] # (Auto) 2.6 10^3/uL (0.2-0.9) H 11/06/22 04:21 Eos # (Auto) 0.0 10^3/uL (0.0-0.8) 11/06/22 04:21 Baso # (Auto) 0.0 10^3/uL (0.0-0.1) 11/06/22 04:21 Nucleated RBC % (auto) 0 % 11/06/22 04:21 Nucleated RBCs # 0.0 /100WBC 11/06/22 04:21 Sodium 136 mmol/L (136-145) 11/06/22 04:21 Potassium 4.2 mmol/L (3.5-5.1) 11/06/22 04:21 Chloride 103 mmol/L (98-107) 11/06/22 04:21 Carbon Dioxide 25 mmol/L (22-29) 11/06/22 04:21 Anion Gap 12.2 (5-19) 11/06/22 04:21 BUN 24 mg/dL (8-23) H 11/06/22 04:21 Creatinine 1.5 mg/dL (0.5-0.9) H 11/06/22 04:21 GFR Calculation Not Reportable 11/06/22 04:21 Glucose 112 mg/dL (65-115) 11/06/22 04:21 Calculated Osmolality 287 mOsm/kg (285-295) 11/06/22 04:21 Calcium 9.3 mg/dL (8.5-10.5) 11/06/22 04:21 Vitals Last Vital Signs Temp 97.6 F 11/06/22 11:28 Pulse 54 L 11/06/22 11:28 Resp 18 11/06/22 11:28 BP 121/69 11/06/22 11:28 Pulse Ox 92 11/06/22 11:28 O2 Del Method Room Air 11/06/22 11:28 Discharge Plan Discharge Patient Disposition: Home Health Service Condition: Stable Prescriptions: New celecoxib 200 mg Capsule 200 mg PO 1XD 30 Days Qty: 30 0RF acetaminophen 500 mg Tablet 1,000 mg PO Q8H 15 Days Qty: 90 0RF aspirin 325 mg Tablet,Delayed Release (Dr/Ec) 325 mg PO DAILY 30 Days Qty: 0 0RF oxycodone 5 mg Tablet 5 mg PO Q4H PRN (Reason: Moderate Pain) 7 Days Qty: 30 0RF Continued pravastatin 40 mg tablet 40 mg PO DAILY hydrochlorothiazide 25 mg tablet 25 mg PO DAILY losartan 100 mg tablet 100 mg PO DAILY pantoprazole 40 mg tablet,delayed release (DR/EC) 40 mg PO DAILY trazodone 150 mg tablet 150 mg PO BEDTIME docusate sodium [Stool Softener] 100 mg Tablet 100 mg PO DAILY Discharge Orders: Discharge Order (Routine); Ordered 11/06/22 Ordered By: Bev South Referrals: [facility] [Outside] Bev South MD [Physician] - 11/25/22 8:15 am Discharge Diet: Advance as tolerated and Usual diet Discharge Activity: Increase activity as tolerated, Limit activity as instructed, Use walker/crutches as instructed and As per PT/OT instructions Patient Instructions: Aspirin (By mouth), Oxycodone, Rapid Release (By mouth), Celecoxib (By mouth), Total Knee Replacement (GEN), Joint Replacement Stoplight, Opioid Safety Activity Restrictions/Additional Instructions: Ice and elevation to right lower extremity. Maintain clear plastic dressing in place until it comes off on its own. You may shower, but do not soak your leg. Ambulate weightbearing as tolerated. Physical therapy for gait training, ambulation, and range of motion. Discharge Attestations Time Spent in Discharge Care*: greater than 30 min Specific Discharge Activities: educating patient, documenting/other paperwork and evaluating patient/reviewing data Quality Metrics Clinical Quality Measures [ No reported AMI, CVA or VTE this stay] Coding Level of Care Code Acute Code for Chg Fwd Diagnoses Primary osteoarthritis of right knee M17.11
--- NOTE | 2022-11-12 11:45 | PC.NURSE ---
Cespedes was removed by Blayne Toribio on 11/06/22 at 1020 but was not charted out before the patient was discharged.
--- NOTE | 2022-11-12 14:26 | PC.NURSE ---
Upon speaking with Dr. South, it was discovered that mccormick was removed per nurses' note made by Itzel Guaman RN, however not documented in the manage urinary catheter portion of documentation, thus showing patient still had a mccormick in place. Per documentation by Itzel, I documented mccormick as removed on 11/06 at 0550.
== END 2022-11-06 13:47 | disposition home health service (06) ==
LOC: MEDSURG 10:16
PROVIDERS: Admitting Provider Specialist; PCP Registered Nurse; Visit Provider Specialist
PROC: 8E0Y0CZ Robotic Assisted Procedure of Lower Extremity, Open Approach (ICD-10-PCS; CPT 27447; principal; 2022-11-05 07:00)
DX: M17.11 Unilateral primary osteoarthritis, right knee (principal); I10 Essential (primary) hypertension; K21.9 Gastro-esophageal reflux disease without esophagitis; E78.5 Hyperlipidemia, unspecified; E66.01 Morbid (severe) obesity due to excess calories; Z68.38 Body mass index [BMI] 38.0-38.9, adult; Z87.891 Personal history of nicotine dependence
CPT/HCPCS: 27447; 36415; 51702; 73560; 80048; 85025; 97110; 97116; 97161; 97530; C1776; C9290; G0378; J0131; J0690; J1100; J2371; J2704; J2795; J3370; J3490; J7030

== ENCOUNTER 2022-11-13 14:12 | Emergency (ER) | payer MEDICARE, MEDICAID, SELFPAY ==
[2022-11-13 14:15] VITALS: BP 134/56; PULSE 68; TEMP 37.1; O2SAT 93; BMI 39.1
--- NOTE | 2022-11-13 14:17 | ECG_ITS ---
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 Measurements Intervals [place] Rate: 69 P: 52 IA: 191 QRS: 47 QRSD: 85 T: 12 QT: 366 QTc: 393 Interpretive Statements SINUS RHYTHM NONSPECIFIC T-WAVE ABNORMALITY No previous ECG available for comparison Electronically Signed On 11-13-2022 20:50:48 CDT by Meri Rendon M.D. [email or web address]
[2022-11-13 14:42] VITALS: BP 157/71; PULSE 73
[2022-11-13 14:44] LABS: Basophils % 0.4 %; Eosinophils # 0.1 10^3/uL (0.0-0.8); Hematocrit 24.9 % (36-47); Lymphocytes # 1.7 10^3/uL (0.8-4.8); Lymphocytes % 25.1 %; Mean Corpuscular HGB Conc 31.7 g/dL (30-55); Mean Corpuscular Hemoglobin 29.6 pg (27-33); Mean Corpuscular Volume 93.3 fl (85-98); Mean Platelet Volume 11.1 fL (7.4-10.4); Monocytes # 1.1 10^3/uL (0.2-0.9); Monocytes % 15.4 %; Neutrophils # 3.87 10^3/uL (1.8-7.7); Neutrophils % 56.6 %; Nucleated Red Blood Cells % 0 %; Platelet Count 205 10^3/cmm (157-399); Red Blood Count 2.67 10^6/uL (3.85-5.65); Red Cell Distribution Width 16.1 % (12.1-15.1); White Blood Count 6.84 10^3/uL (3.29-11.43)
[2022-11-13 14:47] LABS: Alanine Aminotransferase 9 U/L (0-33); Albumin Level 3.9 g/dL (3.5-5.2); Alkaline Phosphatase 68 U/L (35-105); Anion Gap 15.1 (5-19); Aspartate Amino Transferase 15 U/L (0-32); Blood Urea Nitrogen 19 mg/dL (8-23); Calcium 9.6 mg/dL (8.5-10.5); Carbon Dioxide 27 mmol/L (22-29); Chloride 98 mmol/L (98-107); Globulin 2.7 g/dL (1.3-4.6); Glucose 109 mg/dL (65-115); Magnesium 2.1 mg/dL (1.7-2.3); Osmolality Calculated 285 mOsm/kg (285-295); Potassium 4.1 mmol/L (3.5-5.1); Sodium 136 mmol/L (136-145); Total Bilirubin 0.7 mg/dL (0.15-1.2); Total Protein 6.6 g/dL (6.6-8.7)
[2022-11-13] MEDS: sodium chloride 0.9% 1,000 ML 999 ML IV (14:52)
[2022-11-13 15:09] LABS: Add Urine Microscopic? YES; Bilirubin Urine Neg (Negative); Blood Urine Neg (Negative); Glucose Urine UA Norm (Normal); Ketones Urine Negative (Negative); Leukocyte Esterase Urine Negative (Negative); Nitrate Urine Negative (Negative); Protein Urine Neg (Negative); Specific Gravity, Urine 1.015 (1.005-1.030); Urine Appearance SL Hazy (CLEAR); Urine Color Yellow (Yellow); Urobilinogen Urine Norm (Negative); pH Urine 6 (5-7)
[2022-11-13 15:10] VITALS: BP 142/65; PULSE 75; O2SAT 93
--- NOTE | 2022-11-13 15:14 | ED_ITS ---
HPI - Weakness General: Chief complaint: Weakness Stated complaint: Dizziness/Weakness Time Seen by Provider: 11/13/22 14:13 History of Present Illness: 77-year-old female presents the emergency department for evaluation of fatigue and feeling sort of lightheaded and dizzy at times. She did have a right knee replacement on November 05. She was discharged with a hemoglobin of 8.2 patient has been ambulatory, cooking her own meals, doing her own cleaning. She is using her opiate pain medicaiton as needed. She has some mild swelling about the right knee but nothing worse than she expected. No pleuritic chest pain, hemoptysis, cough, fever, nausea, vomiting, diarrhea, confusion, sore throat, ear pain, headache,, dysuria, hematuria. Associated symptoms: Denies chest pain, chills, dysuria, fever(s), headache(s), nausea, syncope or vomiting Review of Systems General: Reports: 10 or more systems reviewed and unremarkable except in HPI and below Const: Denies: fever(s), chills or body aches Eyes: Denies: change in vision ENMT: Denies: throat pain Card: Denies: chest pain, edema or syncope Resp: Denies: dyspnea or productive cough GI: Denies: abdominal pain, nausea, vomiting or diarrhea : Denies: flank pain, dysuria or urinary frequency Musc: Denies: neck pain or back pain Skin/Breast: Denies: rash or erythema Neuro: Denies: headache(s), numbness in extremities, weakness in extremities or lack of coordination PFSH ED PFSH: Medical History Chondromalacia patellae of right knee GERD (gastroesophageal reflux disease) History of nonmelanoma skin cancer Hyperlipidemia Hypertension Medial meniscus tear Surgical History S/P bilateral oophorectomy Family History Brother Myocardial infarction Hypertension Sister Myocardial infarction Cancer Diabetes Hypertension Mother Cancer Father Cancer Social History Smoking and tobacco status: former smoker Alcohol intake: never Substance/Drug Use: never Physical Exam Narrative: EXAM NARRATIVE: Patient is well-appearing, nontoxic, no acute distress. She does have mild pal syeda. This is particularly noted on the palms and conjunctiva. She is not orthostatic at bedside although she does have a wide pulse pressure. She is able to stand and ambulate unassisted. Heart and lung exams unremarkable. Her right lower extremity does have some swelling and bruising around the knee. However, I would say compared to most postoperative patients this knee replacement is in keeping with the average postoperative picture. There is no redness, excessive warmth, excessive tenderness. She is able to flex and extend her knee actively and passively. Distal pulses are intact. No calf tenderness redness. Const: COMMON NORMALS: no limitations, alert and well nourished EXAM LIMITATIONS: no altered mental status HENMT: COMMON NORMALS: normocephalic, atraumatic and external ears normal HEAD & SCALP: normocephalic and atraumatic EXTERNAL EAR: Yes external ears normal MOUTH: no muffled voice Eye: COMMON NORMALS: EOMs intact bilaterally, conjunctivae normal and no scleral icterus CONJUNCTIVA: Yes conjunctivae normal Neck/C-Spine: COMMON NORMALS: no JVD GENERAL: Yes normal visual inspection and Yes trachea midline Resp: COMMON NORMALS: normal respiratory effort, No use of accessory muscles and clear to auscultation bilaterally AUSCULTATION: clear to auscultation bilaterally Cardio: COMMON NORMALS: no JVD, regular rate and regular rhythm RATE: regular rate RHYTHM: regular rhythm GI: COMMON NORMALS: Soft to palpation and non-tender PALPATION: Yes Soft to palpation and No Guarding due to palpation present (GI) Neuro: COMMON NORMALS: moves all extremities, no focal motor deficits and no sensory deficits noted SENSORIUM/ORIENTATION: Yes alert SPEECH: speech normal Psych: COMMON NORMALS: mental status grossly normal, Normal thought process present, cooperative, normal affect and speech normal SPEECH: Yes normal speech THOUGHT PROCESS: Normal thought process present Course Vital Signs: Vital signs: Vital Signs Temperature 98.8 F 11/13/22 14:15 Pulse Rate 75 11/13/22 15:10 Blood Pressure 142/65 11/13/22 15:10 Pulse Oximetry 93 11/13/22 15:10 Oxygen Delivery Me thod Room Air 11/13/22 15:10 MDM - Weakness Medical Decision Making Strongly suspect that the patient's fatigue and intermittent dizziness is related to her anemia. She was discharged with a hemoglobin of 8.2 and is probably gotten a new nathan since her postoperative anemia. Update, patient's hemoglobin is 7.9. She is not orthostatic at bedside and has not tachycardic. She denies any cardiopulmonary disease. Therefore, her transfusion cutoff will be 7 rather than 8. Therefore patient will be discharged with iron and allow her body to naturally replenish her blood supplies. Lab Data 11/13/22 14:20 11/13/22 14:20 Laboratory Results WBC 6.84 10^3/uL (3.29-11.43) 11/13/22 14:20 RBC 2.67 10^6/uL (3.85-5.65) L 11/13/22 14:20 Hgb 7.90 g/dL (11.27-16.99) L 11/13/22 14:20 Hct 24.9 % (36-47) L 11/13/22 14:20 MCV 93.3 fl (85-98) 11/13/22 14:20 MCH 29.6 pg (27-33) 11/13/22 14:20 MCHC 31.7 g/dL (30-55) 11/13/22 14:20 RDW 16.1 % (12.1-15.1) H 11/13/22 14:20 Plt Count 205 10^3/cmm (157-399) 11/13/22 14:20 MPV 11.1 fL (7.4-10.4) H 11/13/22 14:20 Neut % (Auto) 56.6 % 11/13/22 14:20 Lymph % (Auto) 25.1 % 11/13/22 14:20 [place] % (Auto) 15.4 % 11/13/22 14:20 Eos % (Auto) 1.0 % 11/13/22 14:20 Baso % (Auto) 0.4 % 11/13/22 14:20 Neut # (Auto) 3.87 10^3/uL (1.8-7.7) 11/13/22 14:20 Lymph # (Auto) 1.7 10^3/uL (0.8-4.8) 11/13/22 14:20 [place] # (Auto) 1.1 10^3/uL (0.2-0.9) H 11/13/22 14:20 Eos # (Auto) 0.1 10^3/uL (0.0-0.8) 11/13/22 14:20 Baso # (Auto) 0.0 10^3/uL (0.0-0.1) 11/13/22 14:20 Nucleated RBC % (auto) 0 % 11/13/22 14:20 Nucleated RBCs # 0.0 /100WBC 11/13/22 14:20 Sodium 136 mmol/L (136-145) 11/13/22 14:20 Potassium 4.1 mmol/L (3.5-5.1) 11/13/22 14:20 Chloride 98 mmol/L (98-107) 11/13/22 14:20 Carbon Dioxide 27 mmol/L (22-29) 11/13/22 14:20 Anion Gap 15.1 (5-19) 11/13/22 14:20 BUN 19 mg/dL (8-23) 11/13/22 14:20 Creatinine 1.2 mg/dL (0.5-0.9) H 11/13/22 14:20 GFR Calculation Not Reportable 11/13/22 14:20 Glucose 109 mg/dL (65-115) 11/13/22 14:20 Calculated Osmolality 285 mOsm/kg (285-295) 11/13/22 14:20 Calcium 9.6 mg/dL (8.5-10.5) 11/13/22 14:20 Magnesium 2.1 mg/dL (1.7-2.3) 11/13/22 14:20 Total Bilirubin 0.7 mg/dL (0.15-1.2) 11/13/22 14:20 AST 15 U/L (0-32) 11/13/22 14:20 ALT 9 U/L (0-33) 11/13/22 14:20 Alkaline Phosphatase 68 U/L (35-105) 11/13/22 14:20 Total Protein 6.6 g/dL (6.6-8.7) 11/13/22 14:20 Albumin 3.9 g/dL (3.5-5.2) 11/13/22 14:20 Globulin 2.7 g/dL (1.3-4.6) 11/13/22 14:20 Urine Color Yellow (Yellow) 11/13/22 14:48 Urine Appearance Sl hazy (CLEAR) A 11/13/22 14:48 Urine pH 6 (5-7) 11/13/22 14:48 Ur Specific Roberts 1.015 (1.005-1.030) 11/13/22 14:48 Urine Protein Neg (Negative) 11/13/22 14:48 Urine Glucose (UA) Norm (Normal) 11/13/22 14:48 Urine Ketones Negative (Negative) 11/13/22 14:48 Urine Blood Neg (Negative) 11/13/22 14:48 Urine Nitrate Negative (Negative) 11/13/22 14:48 Urine Bilirubin Neg (Negative) 11/13/22 14:48 Urine Urobilinogen Norm mg/dL (Negative) 11/13/22 14:48 Ur Leukocyte Esterase Negative (Negative) 11/13/22 14:48 Urine RBC 0-4 /hpf (0-2) H 11/13/22 14:48 Urine WBC 5-10 /hpf (0-5) H 11/13/22 14:48 Ur Squamous Epith Cells 5-10 /hpf (0-5) H 11/13/22 14:48 Ur Renal Epithelial Cell 0-4 /hpf 11/13/22 14:48 Amorphous Sediment Not Reportable 11/13/22 14:48 Urine Bacteria 1+ /hpf (NONE) H 11/13/22 14:48 Urine Mucus None /hpf 11/13/22 14:48 No radiology studies performed this visit Discharge Plan Discharge Patient Disposition: Home Clinical Impression: Acute blood loss as cause of postoperative anemia Condition: Stable Prescriptions: No Action pravastatin 40 mg tablet 40 mg PO BEDTIME hydrochlorothiazide 25 mg tablet 25 mg PO QAM losartan 100 mg tablet 100 mg PO QAM pantoprazole 40 mg tablet,delayed release (DR/EC) 40 mg PO QAM trazodone 150 mg tablet 225 mg PO BEDTIME oxycodone 5 mg tablet 5 mg PO Q4H PRN (Reason: Pain) diclofenac sodium 1 % gel 2 g TOPICAL QID celecoxib 200 mg capsule 200 mg PO QAM acetaminophen 500 mg tablet 1,000 mg PO Q8H PRN (Reason: Pain) aspirin 325 mg tablet,delayed release (DR/EC) 325 mg PO QAM docusate sodium [Stool Softener] 100 mg Tablet 200 mg PO BEDTIME Discharge Orders: Discharge ED (Routine); Ordered 11/13/22 Ordered By: Lorenzo Blanco Referrals: Kim Rose [Primary Care Provider] - 7-10 days Patient Instructions: Iron Rich Diet (ED), Anemia (ED), Opioid Safety, Pain Management Activity Restrictions/Additional Instructions: Your hemoglobin is 7.9 today. Normal is between 13 and 14 for female of your age. You lost a significant amount of blood during your procedure. However, your body is compensating very well. Therefore the benefits of blood transfusion at this time do not outweigh the risks. However, they are getting close. If her hemoglobin drops below 7, then you will need to have a tr ansfusion. Please make sure that you are eating an iron rich diet. See handout for more details. Be sure to sit up slowly and stand up even more slowly. Drink at least 72 ounces of fluid daily to compensate for your anemia. Follow- up in 7 to 10 days to have your hemoglobin rechecked. If you start having increased weakness, rapid heart rate or palpitations, feel like you are going to pass out, low blood pressure or other serious symptoms then call your doctor or return to the ER. Coding Level of Care Code ED Transportation Maintenance Operator for Kofi Gutierrez
[2022-11-13 15:22] LABS: Add Urine Culture? No; Bacteria Urine 1+ /hpf; RBC Urine 0-4 /hpf (0-2); Renal Epithelial Cells Urine 0-4 /hpf
[2022-11-13] MEDS: HYDROcodone-acetaminophen 10-325 mg Tablet 1 TAB PO (15:23)
[2022-11-13 16:46] VITALS: BP 141/60; PULSE 66; O2SAT 93
== END 2022-11-13 16:58 | disposition home or self-care (01) ==
PROVIDERS: Emergency Provider Emergency Medicine; PCP Registered Nurse
DX: D62 Acute posthemorrhagic anemia (principal); Z79.82 Long term (current) use of aspirin; Z87.891 Personal history of nicotine dependence; E78.5 Hyperlipidemia, unspecified; I10 Essential (primary) hypertension
CPT/HCPCS: 80053; 81001; 83735; 85025; 93005; 96360; 99284; J7030

== ENCOUNTER → 2022-11-25 08:13 | Outpatient (BNVA) | payer MEDICARE, MEDICAID, SELFPAY | PROVIDERS: PCP Registered Nurse; Visit Provider Specialist | DX: Z01.818 Encounter for other preprocedural examination (principal); M17.11 Unilateral primary osteoarthritis, right knee; Z96.651 Presence of right artificial knee joint; D64.9 Anemia, unspecified | CPT/HCPCS: 36415; 73560; 73565; 85025; 99024 ==

== ENCOUNTER → 2022-12-23 09:22 | Outpatient (BNVA) | payer MEDICARE, MEDICAID, SELFPAY | PROVIDERS: PCP Registered Nurse; Visit Provider Nurse Practitioner | DX: Z96.651 Presence of right artificial knee joint (principal) | CPT/HCPCS: 73560; 73565; 99024 ==

== ENCOUNTER → 2023-06-11 14:34 | Outpatient (BNVA) | payer MEDICARE, MEDICAID, SELFPAY | PROVIDERS: PCP Registered Nurse; Visit Provider Dermatology | DX: L57.0 Actinic keratosis (principal); L40.8 Other psoriasis; L30.4 Erythema intertrigo; D22.4 Melanocytic nevi of scalp and neck; L81.4 Other melanin hyperpigmentation; L57.8 Other skin changes due to chronic exposure to nonionizing radiation; L82.1 Other seborrheic keratosis; Z85.828 Personal history of other malignant neoplasm of skin | CPT/HCPCS: 17000; 99214 ==

== ENCOUNTER → 2023-07-21 13:16 | Outpatient (BNVA) | payer MEDICARE, MEDICAID, SELFPAY | PROVIDERS: PCP Registered Nurse; Visit Provider Nurse Practitioner Family | DX: L30.4 Erythema intertrigo (principal); L57.0 Actinic keratosis; L23.89 Allergic contact dermatitis due to other agents; D22.4 Melanocytic nevi of scalp and neck; D22.5 Melanocytic nevi of trunk | CPT/HCPCS: 17000; 99213 ==

== ENCOUNTER → 2023-11-05 12:57 | Outpatient (BNVA) | payer MEDICARE, MEDICAID, SELFPAY | PROVIDERS: PCP Registered Nurse; Visit Provider Nurse Practitioner | DX: Z96.651 Presence of right artificial knee joint (principal) | CPT/HCPCS: 73560; 73565; 99213 ==

== ENCOUNTER → 2024-05-19 10:52 | Outpatient (BNVA) | payer MEDICARE, MEDICAID, SELFPAY | PROVIDERS: PCP Registered Nurse; Visit Provider Nurse Practitioner Family | DX: L40.8 Other psoriasis (principal); R23.3 Spontaneous ecchymoses; L29.89 Other pruritus; L85.3 Xerosis cutis; L81.4 Other melanin hyperpigmentation; Z08 Encounter for follow-up examination after completed treatment for malignant neoplasm; Z85.828 Personal history of other malignant neoplasm of skin; L82.0 Inflamed seborrheic keratosis; L53.8 Other specified erythematous conditions; L30.9 Dermatitis, unspecified | CPT/HCPCS: 11102; 17110; 99214 ==

== ENCOUNTER → 2024-06-23 10:40 | Outpatient (BNVA) | payer MEDICARE, MEDICAID, SELFPAY | PROVIDERS: PCP Registered Nurse; Visit Provider Nurse Practitioner Family | DX: L57.0 Actinic keratosis (principal); R23.3 Spontaneous ecchymoses; L29.89 Other pruritus; L81.4 Other melanin hyperpigmentation; Z08 Encounter for follow-up examination after completed treatment for malignant neoplasm; Z85.828 Personal history of other malignant neoplasm of skin | CPT/HCPCS: 99213 ==

== ENCOUNTER → 2024-11-08 08:40 | Outpatient (BNVA) | payer MEDICARE, MEDICAID, SELFPAY | PROVIDERS: PCP Registered Nurse; Visit Provider Nurse Practitioner | DX: Z47.89 Encounter for other orthopedic aftercare (principal); Z96.651 Presence of right artificial knee joint | CPT/HCPCS: 73560; 73565; 99214 ==